=== PATIENT | male | born 1975 | race Caucasian/White ===

== ENCOUNTER 2018-03-07 18:28 | Inpatient (IN) | payer MEDICAID ==
[2018-03-07 18:42] VITALS: BMI 27.3
[2018-03-07 20:14] LABS: BASO # 0.1 K/uL (0.0-0.2); BASO % 0.5 % (0.0-2.0); EOS # 0.1 K/uL (0.0-0.7); EOS % 0.7 % (0.0-4.0); HEMOGLOBIN 13.8 g/dL (12.0-18.0); LYMPH # 3.6 K/uL (1.0-4.3); LYMPH % 33.2 % (20.0-40.0); MEAN CELL VOLUME 81.3 fL (80.0-94.0); MEAN CORPUSCULAR HEMOGLOBIN 26.5 pg (27.0-31.0); MEAN CORPUSCULAR HGB CONC 32.5 g/dL (33.0-37.0); MEAN PLATELET VOLUME 9.6 fL (7.2-11.7); MONO # 0.6 K/uL (0.0-0.8); MONO % 5.7 % (0.0-10.0); NEUT # 6.5 K/uL (1.8-7.0); NEUT % 59.9 % (50.0-75.0); NRBC % 0.1 % (0.0-2.0); RBC 5.23 Mil/uL (4.40-5.90); WHITE BLOOD COUNT 10.8 K/uL (4.8-10.8)
[2018-03-07 20:22] LABS: SQUAMOUS EPITHIAL < 1 /hpf (0-5); URINE BILIRUBIN NEGATIVE (NEGATIVE); URINE BLOOD NEGATIVE (NEGATIVE); URINE CLARITY Clear (Clear); URINE COLOR Yellow (YELLOW); URINE GLUCOSE (UA) NORMAL (Normal); URINE LEUKOCYTE ESTERASE NEG Leu/uL (Negative); URINE PROTEIN NEGATIVE (NEGATIVE); URINE UROBILINOGEN NORMAL mg/dL (0.2-1.0)
[2018-03-07 20:31] LABS: BARBITURATES, UR NEGATIVE (NEGATIVE); BENZODIAZEPINES, UR NEGATIVE (NEGATIVE); OPIATES, UR NEGATIVE (NEGATIVE); PHENCYCLIDINE, UR NEGATIVE (NEGATIVE)
[2018-03-07 20:33] LABS: ALB/GLOB RATIO 1.2 (1.0-2.1); ALBUMIN 4.5 g/dL (3.5-5.0); ALT/SGPT 48 U/L (21-72); AST/SGOT 26 U/L (17-59); BLOOD UREA NITROGEN 12 mg/dL (9-20); CALCIUM 9.8 mg/dl (8.6-10.4); GFR NON-AFRICAN AMERICAN > 60
[2018-03-07 20:57] VITALS: O2SAT 100
--- NOTE | 2018-03-07 21:19 | C.PDOC ---
History Of Present Illness 42yo male, history of depression, comes to ER requesting a psychiatric evaluation. Patient states he was incarcerated for the past 2-3 years and states his symptoms were not properly managed while incarcerated. He reports feeling "out of sorts" but denies any suicidal or homicidal ideation. He has no medical complaints. Time Seen by Provider: 03/07/18 19:18 Chief Complaint (Nursing): Psychiatric Evaluation History Per: Patient History/Exam Limitations: no limitations Onset/Duration Of Symptoms: Persistent Current Symptoms Are (Timing): Still Present Associated Symptoms: Depression. denies: Suicidal Thoughts, Suicidal Plan Past Medical History Reviewed: Historical Data, Nursing Documentation, Vital Signs Vital Signs: Last Vital Signs Temp 99.6 F 03/07/18 21:20 Pulse 110 H 03/07/18 21:20 Resp 20 03/07/18 21:20 BP 139/91 H 03/07/18 21:20 Pulse Ox 100 03/07/18 21:20 - Medical History PMH: Depression, HTN, Post Traumatic Stress Disorder Denies: Anxiety, Bipolar Disorder, Diabetes, Hepatitis, HIV, Personality Disorder, Schizophrenia, Seizures, Sexually Transmitted Disease Surgical History: No Surg Hx - [facility] INDIVID PSYCHOTHERAP NEC (04/16/14) OTHER GROUP THERAPY (04/16/14) Family History: States: No Known Family Hx - Social History Hx Tobacco Use: Yes Hx Alcohol Use: No (Sober x 3 years) Hx Substance Use: No (Stopped 2 months ago) - Immunization History Hx Tetanus Toxoid Vaccination: No Hx Influenza Vaccination: No Hx Pneumococcal Vaccination: No Review Of Systems Constitutional: Negative for: Fever, Chills Cardiovascular: Negative for: Chest Pain Respiratory: Negative for: Shortness of Breath Gastrointestinal: Negative for: Abdominal Pain Musculoskeletal: Negative for: Neck Pain, Back Pain Neurological: Negative for: Weakness, Numbness Psych: Positive for: Depression. Negative for: Suicidal ideation Physical Exam - Physical Exam Appears: Non-toxic Skin: Normal Color, Warm Head: Atraumatic, Normacephalic Eye(s): bilateral: Normal Inspection Neck: Normal ROM, Supple Chest: Symmetrical Cardiovascular: Rhythm Regular Respiratory: Normal Breath Sounds Gastrointestinal/Abdominal: Normal Exam, Soft Back: Normal Inspection Extremity: Normal ROM Neurological/Psych: Oriented x3, Normal Speech, Normal Cognition, Normal Motor, Normal Sensation ED Course And Treatment - Laboratory Results Result Diagrams: 03/07/18 20:04 03/07/18 20:04 O2 Sat by Pulse Oximetry: 100 (RA) Pulse Ox Interpretation: Normal Progress Note: Patient seen and evaluated by home economics extension worker Dalila who states patient to be admitted under Dr. Bowen due to Schizoaffective disorder and other substance abuse disorder Disposition - Disposition Disposition: HOSPITALIZED Disposition Time: 21:10 Condition: STABLE - Clinical Impression Clinical Impression: Schizoaffective disorder, Unknown substance dependence, episodic abuse - PA / INTERLOCKER MAINTAINER / Resident Statement MD/DO has reviewed & agrees with the documentation as recorded. - Scribe Statement The provider has reviewed the documentation as recorded by the Arnie Rendon Provider Attestation: All medical record entries made by the Arnie were at my direction and personally dictated by me. I have reviewed the chart and agree that the record accurately reflects my personal performance of the history, physical exam, medical decision making, and the department course for this patient. I have also personally directed, reviewed, and agree with the discharge instructions and disposition.
--- NOTE | 2018-03-07 22:57 | PCM.BM ---
<Reva Lipscombn - Last Filed: 03/07/18 22:55> Treatment Plan Problems - Problems identified on initial assessmt Mood Disturbances Date Initiated: 03/07/18 Time Initiated: 22:55 Assessment reference: NA Status: Active Suicidal Ideation Date Initiated: 03/07/18 Time Initiated: 22:55 Assessment reference: NA Status: Monitor Treatment assets and liabiliti Patient Assests: ADL independent, physically healthy Patient Liabilities: poor support system - Milieu Protocol Maintain good personal hygiene: daily Encourage regular showers, daily Remind patient to perform daily oral care, daily Assist patient to perform ADL's Maintain personal safety: every shift Educate patient to report safety concerns to staff, every shift Monitor environment for contraband/sharps Medication safety: Monitor for expected outcome, potential side effects: every shift, Assess barriers to learning: every shift, Assess readiness for medication education: every shift <Tiara Page - Last Filed: 03/08/18 11:55> Family Contact Family involvement: Family/SO is involved Family contact: Patient declines to allow family contact at present - Goals for Treatment Patient goals for treatment: "I 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 - Treatment Team Participation Discussed with Family/SO: No Was Patient/Family/SO present at Treatment Team Meeting: Yes <Kathya Bowen - Last Filed: 03/08/18 23:36> - Diagnosis (1) Bipolar disorder Status: Acute Interventions: 03/08/18 23:36 * Assess/adjust medications daily and /or as needed * See patient on an individual basis 7x/week to assess level of manic behaviors and stability * Discuss risks, benefits, side effects and alternatives of medications *
[2018-03-08 06:50] VITALS: RESP 18
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
[2018-03-09 06:37] VITALS: BP 122/84; PULSE 121; TEMP 98.5
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
[2018-03-09] MEDS ORDERED: Pneumococcal 23-Valent Vaccine SC ONE (10:00)
== END 2018-03-09 10:04 | disposition home or self-care (01) | DRG 885 ==
LOC: C.ER 18:28 → C.5E 20:56
PROVIDERS: ADMIT Psychiatry & Neurology Psychiatry; ATTEND Psychiatry & Neurology Psychiatry
PROC: GZHZZZZ Group Psychotherapy (ICD-10-PCS; principal; 2018-03-07)
PROC: GZ56ZZZ Individual Psychotherapy, Supportive (ICD-10-PCS; 2018-03-07)
DX: F31.32 Bipolar disorder, current episode depressed, moderate (principal); F17.210 Nicotine dependence, cigarettes, uncomplicated; I10 Essential (primary) hypertension; Z59.0 Homelessness; F43.10 Post-traumatic stress disorder, unspecified; F12.21 Cannabis dependence, in remission; E78.00 Pure hypercholesterolemia, unspecified; E11.9 Type 2 diabetes mellitus without complications

== ENCOUNTER 2018-03-09 21:29 | Emergency (ER) | payer MEDICAID, OTHER ==
[2018-03-09 21:29] VITALS: BMI 27.3
[2018-03-09 22:11] VITALS: TEMP 98.4
--- NOTE | 2018-03-09 22:29 | C.PDOC ---
History Of Present Illness Patient is a 42 y/o M presenting with R sided neck pain. He reports that this morning he woke up with R sided neck pain. He reports that the pain is worse with movement and worse with palpation. Denies trauma. Denies midline pain. Denies fever, cough, chest pain, shortness of breath, weakness,numbness or tingling. He reports that he is concerned that his blood pressure is high as he was recently diagnosed with hypertension and has been unable to afford his norvasc. Time Seen by Provider: 03/09/18 22:13 Chief Complaint (Nursing): High Blood Pressure Past Medical History Vital Signs: Last Vital Signs Temp 98.4 F 03/09/18 22:07 Pulse 96 H 03/09/18 23:24 Resp 16 03/09/18 23:24 BP 129/90 03/09/18 23:24 Pulse Ox 97 03/09/18 23:50 - Medical History PMH: Depression, HTN, Post Traumatic Stress Disorder Denies: Anxiety, Bipolar Disorder, Diabetes, Hepatitis, HIV, Personality Disorder, Schizophrenia, Seizures, Sexually Transmitted Disease - [facility] Procedures INDIVID PSYCHOTHERAP NEC (04/16/14) OTHER GROUP THERAPY (04/16/14) Family History: States: No Known Family Hx - Social History Hx Tobacco Use: Yes Hx Alcohol Use: No (Sober x 3 years) Hx Substance Use: No - Immunization History Hx Tetanus Toxoid Vaccination: No Hx Influenza Vaccination: No Hx Pneumococcal Vaccination: No Review Of Systems Constitutional: Negative for: Fever, Chills Cardiovascular: Negative for: Chest Pain, Palpitations, Orthopnea, Edema, Light Headedness Respiratory: Negative for: Cough, Shortness of Breath, SOB with Excertion, Wheezing Gastrointestinal: Negative for: Nausea, Vomiting, Abdominal Pain, Diarrhea, Constipation Genitourinary: Negative for: Dysuria, Frequency Musculoskeletal: Positive for: Neck Pain. Negative for: Shoulder Pain, Arm Pain , Back Pain, Hand Pain Neurological: Negative for: Weakness, Numbness, Incoordination, Change in Speech , Confusion, Seizures, Altered Mental Status, Headache, Dizziness Physical Exam - Physical Exam Appears: Well, Non-toxic, No Acute Distress Skin: Normal Color, Warm, Dry Head: Atraumatic, Normacephalic Eye(s): bilateral: Normal Inspection, PERRL, EOMI Neck: Paracervical Tenderness (R sided muscle spasm, tender to palpation), Supple Chest: Symmetrical Cardiovascular: Rhythm Regular Respiratory: Normal Breath Sounds, No Rales, No Rhonchi, No Wheezing Gastrointestinal/Abdominal: Soft, No Tenderness Back: Normal Inspection, No CVA Tenderness Extremity: Normal ROM Neurological/Psych: Oriented x3, Normal Speech, Normal Cranial Nerves, Normal Motor, Normal Sensation Gait: Steady ED Course And Treatment - Laboratory Results Result Diagrams: 03/09/18 22:42 03/09/18 22:42 O2 Sat by Pulse Oximetry: 97 Medical Decision Making Medical Decision Making: Presentation seems consistent with muscle spasm. Non-compliant with BP medication. He reports that he has the prescription at home and was urged to fill it --toradol --bp medication --ekg --labs --xray 10:40PM EKG shows NSR at 95bpm with normal intervals and no st changes. Cxray unchanged. Labs grossly normal. Trop negative. Patient feels better after muscle relaxant and anti-inflammatory. Instructed to follow-up with clinic and take medication Disposition - Disposition Referrals: [facility] [Outside] Disposition: HOME/ ROUTINE Disposition Time: 23:44 Condition: GOOD Additional Instructions: Take your blood pressure medication as prescribed. Return to ED if condition worsens. Follow-up with PMD or Clinic within 2 days. Motrin as needed for pain. Prescriptions: Ibuprofen [Motrin] 600 mg PO Q6 #20 tab Instructions: Muscle Strain, High Blood Pressure in Adults Forms: [facility] (Dutch) - Clinical Impression Clinical Impression: Neck strain, Muscle spasm, Elevated blood pressure reading
[2018-03-09 22:46] LABS: BASO # 0.1 K/uL (0.0-0.2); BASO % 0.5 % (0.0-2.0); EOS # 0.2 K/uL (0.0-0.7); EOS % 1.3 % (0.0-4.0); HEMOGLOBIN 13.1 g/dL (12.0-18.0); LYMPH # 3.9 K/uL (1.0-4.3); MEAN CELL VOLUME 82.4 fL (80.0-94.0); MEAN CORPUSCULAR HEMOGLOBIN 26.5 pg (27.0-31.0); MEAN CORPUSCULAR HGB CONC 32.1 g/dL (33.0-37.0); MONO # 0.6 K/uL (0.0-0.8); MONO % 4.7 % (0.0-10.0); NEUT # 7.6 K/uL (1.8-7.0); NEUT % 61.5 % (50.0-75.0); NRBC % 0.1 % (0.0-2.0); RBC 4.93 Mil/uL (4.40-5.90); RED CELL DISTRIBUTION WIDTH 14.3 % (11.5-14.5); WHITE BLOOD COUNT 12.3 K/uL (4.8-10.8)
[2018-03-09 23:01] LABS: ALB/GLOB RATIO 1.1 (1.0-2.1); ALBUMIN 4.2 g/dL (3.5-5.0); ALT/SGPT 45 U/L (21-72); AST/SGOT 43 U/L (17-59); BLOOD UREA NITROGEN 16 mg/dL (9-20); CALCIUM 9.2 mg/dl (8.6-10.4); GFR NON-AFRICAN AMERICAN > 60
[2018-03-09 23:25] VITALS: BP 129/90; PULSE 96; RESP 16
[2018-03-09 23:26] VITALS: O2SAT 97
--- NOTE | 2018-03-10 08:07 | RAD ---
Date of service: 03/09/2018 HISTORY: neck pain COMPARISON: 04/30/2014. FINDINGS: LUNGS: The lungs are well inflated and clear. PLEURA: No significant pleural effusion identified, no pneumothorax apparent. CARDIOVASCULAR: Normal. OSSEOUS STRUCTURES: No significant abnormalities. VISUALIZED UPPER ABDOMEN: Normal. OTHER FINDINGS: None. IMPRESSION: No active pulmonary disease.
--- NOTE | 2018-03-13 11:32 | CARD ---
APPROVED REPORT Date of service: 03/09/2018 EKG Measurement Heart [id number] <Conclusion> Normal sinus rhythm Normal ECG
== END 2018-03-10 00:14 | disposition home or self-care (01) ==
LOC: C.ER 21:29
DX: S16.1XXA Strain of muscle, fascia and tendon at neck level, initial encounter (principal); X58.XXXA Exposure to other specified factors, initial encounter; Y92.9 Unspecified place or not applicable; I10 Essential (primary) hypertension; F17.210 Nicotine dependence, cigarettes, uncomplicated
CPT/HCPCS: 71045; 80053; 82948; 84484; 85025; 93005; 96372; 99285; J1885

== ENCOUNTER 2018-03-12 13:26 | Inpatient (IN) | payer MEDICAID, OTHER ==
[2018-03-12 13:26] VITALS: BMI 27.3
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
[2018-03-12 14:26] LABS: BASO # 0.1 K/uL (0.0-0.2); BASO % 0.5 % (0.0-2.0); EOS # 0.2 K/uL (0.0-0.7); EOS % 1.2 % (0.0-4.0); HEMOGLOBIN 13.6 g/dL (12.0-18.0); LYMPH % 20.5 % (20.0-40.0); MEAN CELL VOLUME 82.3 fL (80.0-94.0); MEAN CORPUSCULAR HEMOGLOBIN 26.8 pg (27.0-31.0); MEAN CORPUSCULAR HGB CONC 32.6 g/dL (33.0-37.0); MEAN PLATELET VOLUME 9.5 fL (7.2-11.7); MONO # 0.7 K/uL (0.0-0.8); MONO % 4.9 % (0.0-10.0); NEUT # 10.7 K/uL (1.8-7.0); NEUT % 72.9 % (50.0-75.0); RBC 5.07 Mil/uL (4.40-5.90); RED CELL DISTRIBUTION WIDTH 14.2 % (11.5-14.5); WHITE BLOOD COUNT 14.7 K/uL (4.8-10.8)
[2018-03-12 14:30] LABS: SQUAMOUS EPITHIAL < 1 /hpf (0-5); URINE BACTERIA RARE (<OCC); URINE BILIRUBIN NEGATIVE (NEGATIVE); URINE BLOOD 2+ (NEGATIVE); URINE CLARITY Hazy (Clear); URINE COLOR Yellow (YELLOW); URINE GLUCOSE (UA) NORMAL (Normal); URINE LEUKOCYTE ESTERASE NEG Leu/uL (Negative); URINE PROTEIN 2+ mg/dL (NEGATIVE); URINE UROBILINOGEN NORMAL mg/dL (0.2-1.0)
[2018-03-12 14:40] LABS: ALB/GLOB RATIO 1.2 (1.0-2.1); ALBUMIN 4.3 g/dL (3.5-5.0); ALT/SGPT 66 U/L (21-72); AST/SGOT 45 U/L (17-59); BLOOD UREA NITROGEN 10 mg/dL (9-20); CALCIUM 9.5 mg/dl (8.6-10.4); GFR NON-AFRICAN AMERICAN > 60
[2018-03-12 14:42] LABS: BARBITURATES, UR NEGATIVE (NEGATIVE); BENZODIAZEPINES, UR NEGATIVE (NEGATIVE); OPIATES, UR NEGATIVE (NEGATIVE); PHENCYCLIDINE, UR NEGATIVE (NEGATIVE)
[2018-03-12] MEDS ORDERED: Sodium Chloride 0.9% 1,000 ML IV ONE (15:55)
[2018-03-12] MEDS ORDERED: Magnesium Sulfate 1 gm in D5W 1 GM/100 ML BAG IVPB ONE ×2 (17:05→17:13)
--- NOTE | 2018-03-12 17:55 | RAD ---
HISTORY: Cough COMPARISON: 03/09/2018. TECHNIQUE: Chest PA and lateral FINDINGS: LINES AND TUBES: None. LUNG AND PLEURA: The lungs are well inflated and clear. No pleural effusion or pneumothorax. HEART AND MEDIASTINUM: The heart is not enlarged. The hilar and mediastinal contours are within normal limits. SKELETAL STRUCTURES: The bony structures are within normal limits for the patient's age. VISUALIZED UPPER ABDOMEN: Normal. OTHER FINDINGS: None. IMPRESSION: No active pulmonary disease.
--- NOTE | 2018-03-12 20:59 | PCM.BM ---
<Wilma Monsalve - Last Filed: 03/12/18 20:57> Treatment Plan Problems - Problems identified on initial assessmt depression Date Initiated: 03/12/18 Time Initiated: 20:58 Assessment reference: NA Status: Active Treatment assets and liabiliti Patient Assests: cooperative, insightful, motivated, ADL independent, physically healthy, negotiates basic needs, cognitively intact, strong breana Patient Liabilities: live alone, financial problems, substance abuse <Kathya Bowen - Last Filed: 03/13/18 11:16> - Diagnosis (1) Bipolar disorder Status: Acute Interventions: 03/13/18 11:16 * Assess/adjust medications daily and /or as needed * See patient on an individual basis 7x/week to assess level of manic behaviors and stability * Discuss risks, benefits, side effects and alternatives of medications * <Pema Husain - Last Filed: 03/13/18 14:40> Family Contact Family involvement: Patient does not wish Family/SO involvement Family contact: Patient declines to allow family contact at present - Goals for Treatment Patient goals for treatment: "I want to go to [facility]." Discharge/Continuing Care - Education Needs Education Needs: Patient Medication, Patient Diagnosis/Disease Process, Patient Coping Skills, Patient Placement options, Patient Community resources - Discharge Discharge Criteria: Free of Suicidal thoughts, Normal sleep pattern, Ability to care for self, Reduction of target symptoms Discharge to:: Other - Treatment Team Participation Discussed with Family/SO: No Was Patient/Family/SO present at Treatment Team Meeting: Yes
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
--- NOTE | 2018-03-13 19:24 | CARD ---
APPROVED REPORT Date of service: 03/12/2018 EKG Measurement Heart [id number] <Conclusion> Sinus tachycardia with occasional premature ventricular complexes Low voltage in limb leads Borderline EKG
--- NOTE | 2018-03-14 14:03 | PCM.PYCHPN ---
Addendum entered and electronically signed by Kathya Bowen MD 03/15/18 23:14: Patient seen and evaluated, chart reviewed and discussed with the nurse. Pt reports depressed mood, but reports some improvement in the feelings of hopelessness and helplessness. He still reports irritability and agitation. He remained isolated and withdrawn, and confined to his room. He reports at times auditory hallucinations. Patient is compliant with medications and denies any side effects. Symptoms are improving but pt needs more time to stabilize. Support and psychoeducation given. Original Note: Psychiatric Progress Note - Psychiatric Progress Note Patient seen today, length of contact: 20 min Patient Chief Complaint: "I wanted to " Medication Change: No Medical Record Reviewed: Yes Mental Status Examination - Cognitive Function Orientation: Person, Place, Situation, Time Memory: Intact Attention: Poor Concentration: WNL Association: Loose Fund of Knowledge: WNL - Mood Mood: Depressed, Anxious - Affect Affect: Constricted, Depressed - Speech Speech: Soft, Pressured - Formal Thought Process Formal Thought Process: No Impairment - Suicidal Ideation Suicidal Ideation: No - Homicidal Ideation Homicidal Ideation: Yes Goal/Treatment Plan - Goal/Treatment Plan Need for Continued Stay: Severe depression anxiety, Severe functional impairment Progress Toward Problem(s) and Goals/Treatment Plan: Bipolar disorder, depressed moderate Cannabis use disorder moderate in remission Pt under observation As need medications Gabapentin 300 mg PO TID Trazodone 50 mg PO QHS All risks, benefits and alternatives of the meds discussed, and the pt agreed and understood. Attend groups and activities Individual therapy daily Psychoeducation and support daily Encourage compliance with meds and after care Refer to outpatient program Teach healthy lifestyle methods, i.e. diet, exercise, meditation Smoking cessation and patch if needed - Smoking Cessation Smoking Cessation Initiated: No
[2018-03-15 06:49] VITALS: RESP 20
--- NOTE | 2018-03-15 11:25 | PCM.PYCHPN ---
Psychiatric Progress Note - Psychiatric Progress Note Patient seen today, length of contact: 20 min Patient Chief Complaint: I am feeling better.' Problems Identified/Issues Discussed: Patient seen and evaluated, chart reviewed and discussed with the nurse. Pt reports depressed mood, but reports some improvement in the feelings of hopelessness and helplessness. He still reports irritability and agitation. He remained isolated and withdrawn, and confined to his room. He reports at times auditory hallucinations. Patient is compliant with medications and denies any side effects. Symptoms are improving but pt needs more time to stabilize. Support and psychoeducation given. Medication Change: No Medical Record Reviewed: Yes Mental Status Examination - Cognitive Function Orientation: Person, Place, Situation, Time Memory: Intact Attention: Poor Concentration: WNL Association: Loose Fund of Knowledge: WNL - Mood Mood: Depressed, Anxious - Affect Affect: Constricted, Depressed - Speech Speech: Soft, Pressured - Formal Thought Process Formal Thought Process: No Impairment - Suicidal Ideation Suicidal Ideation: No - Homicidal Ideation Homicidal Ideation: Yes Goal/Treatment Plan - Goal/Treatment Plan Need for Continued Stay: Severe depression anxiety, Severe functional impairment Progress Toward Problem(s) and Goals/Treatment Plan: Bipolar disorder, depressed moderate Cannabis use disorder moderate in remission Pt under observation As need medications Gabapentin 300 mg PO TID Trazodone 50 mg PO QHS Seroquel 50 mg Seroquel 200 mg OLanzapine 5 mg PO BID All risks, benefits and alternatives of the meds discussed, and the pt agreed and understood. Attend groups and activities Individual therapy daily Psychoeducation and support daily Encourage compliance with meds and after care Refer to outpatient program Teach healthy lifestyle methods, i.e. diet, exercise, meditation Smoking cessation and patch if needed
--- NOTE | 2018-03-17 11:11 | PCM.PYCHPN ---
Psychiatric Progress Note - Psychiatric Progress Note Patient seen today, length of contact: 20 min Patient Chief Complaint: I am feeling better.' Problems Identified/Issues Discussed: Patient seen and evaluated, chart reviewed and discussed with the nurse. Today he is reporting auditory hallucinations command type to kill himself, however he is meri for safety. Pt reports depressed mood, but reports some improvement in the feelings of hopelessness and helplessness. He still reports irritability and agitation. He remained isolated and withdrawn, and confined to his room. Patient is compliant with medications and denies any side effects. Symptoms are improving but pt needs more time to stabilize. Support and psychoeducation given. Medication Change: No Medical Record Reviewed: Yes Mental Status Examination - Cognitive Function Orientation: Person, Place, Situation, Time Memory: Intact Attention: Poor Concentration: WNL Association: Loose Fund of Knowledge: WNL - Mood Mood: Depressed, Anxious - Affect Affect: Constricted, Depressed - Speech Speech: Soft, Pressured - Formal Thought Process Formal Thought Process: No Impairment - Suicidal Ideation Suicidal Ideation: No - Homicidal Ideation Homicidal Ideation: Yes Goal/Treatment Plan - Goal/Treatment Plan Need for Continued Stay: Severe depression anxiety, Severe functional impairment Progress Toward Problem(s) and Goals/Treatment Plan: Bipolar disorder, depressed moderate Cannabis use disorder moderate in remission Pt under observation As need medications Gabapentin 300 mg PO TID Trazodone 50 mg PO QHS Seroquel 50 mg Seroquel 200 mg OLanzapine 5 mg PO BID All risks, benefits and alternatives of the meds discussed, and the pt agreed and understood. Attend groups and activities Individual therapy daily Psychoeducation and support daily Encourage compliance with meds and after care Refer to outpatient program Teach healthy lifestyle methods, i.e. diet, exercise, meditation Smoking cessation and patch if needed
[2018-03-19] MEDS ORDERED: Influenza Vaccine 60 MCG/0.5 ML SYR (3 yr & up) IM ONE (10:00)
--- NOTE | 2018-03-19 21:31 | PCM.PYCHPN ---
Psychiatric Progress Note - Psychiatric Progress Note Patient seen today, length of contact: 15 minutes Patient Chief Complaint: Today I am feeling better. Problems Identified/Issues Discussed: Patient seen, chart reviewed, case discussed with the staff. Issues related to illness and treatment were discussed with the patient and staff. Reported compliant with treatment with no adverse affects. Tolerating treatment very well. Patient reported feeling little better with the treatment. Calm and cooperative. Awake, alert and oriented 3. No psychomotor activity, good eye contact, memory intact. Aftercare discussed with the patient. Denied any delusions, auditory or visual hallucinations, suicidal ideations or homicidal ideations at the time of evaluation. Diagnostic Results: Reviewed DSM 5 Symptoms Update: Improving with treatment Medication Change: No Medical Record Reviewed: Yes Mental Status Examination - Cognitive Function Orientation: Person, Place, Situation, Time Memory: Intact Attention: WNL Concentration: WNL Association: WNL Fund of Knowledge: WN Decription of patient's judgement and insights: Good - Mood Mood: Depressed - Affect Affect: Constricted, Depressed - Speech Speech: Appropriate - Formal Thought Process Formal Thought Process: No Impairment - Suicidal Ideation Suicidal Ideation: No - Homicidal Ideation Homicidal Ideation: No Goal/Treatment Plan - Goal/Treatment Plan Need for Continued Stay: Remain at risks for inpatient hospitalization, Discharge may exacerbated symptoms, Severe functional impairment Progress Toward Problem(s) and Goals/Treatment Plan: Patient education. Supportive therapy. Continue treatment as before. Patient will go to [facility] for follow-up care after discharge from the hospital. Estimated Date of D/C: 03/20/18 - Smoking Cessation Smoking Cessation Initiated: No
[2018-03-20 06:13] VITALS: O2SAT 98
[2018-03-20] MEDS ORDERED: Pneumococcal 23-Valent Vaccine IM ONE (10:00)
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
[2018-03-21 06:52] VITALS: BP 133/85; PULSE 99; TEMP 97.4
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
== END 2018-03-21 11:21 | disposition home or self-care (01) | DRG 753 ==
LOC: C.ER 13:26 → C.5E 19:01
PROVIDERS: ADMIT Psychiatry & Neurology Psychiatry; ATTEND Psychiatry & Neurology Psychiatry
PROC: GZHZZZZ Group Psychotherapy (ICD-10-PCS; principal; 2018-03-12)
PROC: GZ58ZZZ Individual Psychotherapy, Cognitive-Behavioral (ICD-10-PCS; 2018-03-12)
PROC: GZ56ZZZ Individual Psychotherapy, Supportive (ICD-10-PCS; 2018-03-12)
DX: F31.32 Bipolar disorder, current episode depressed, moderate (principal); E11.9 Type 2 diabetes mellitus without complications; R45.851 Suicidal ideations; F12.21 Cannabis dependence, in remission; F25.9 Schizoaffective disorder, unspecified; F17.210 Nicotine dependence, cigarettes, uncomplicated; E78.00 Pure hypercholesterolemia, unspecified; F42.9 Obsessive-compulsive disorder, unspecified; F43.10 Post-traumatic stress disorder, unspecified; I10 Essential (primary) hypertension; Z59.0 Homelessness; Z91.410 Personal history of adult physical and sexual abuse

== ENCOUNTER 2018-03-22 15:26 | Inpatient (IN) | payer MEDICAID ==
[2018-03-22 15:27] VITALS: BMI 27.3
[2018-03-22] MEDS ORDERED: Sodium Chloride 0.9% 1,000 ML IV ONE (16:17)
[2018-03-22] MEDS ORDERED: Charcoal 50 gm/240 ml Susp PO STA (16:17)
--- NOTE | 2018-03-22 16:19 | C.PDOC ---
History Of Present Illness 42 y/o male brought in by EMS s/p intentional overdose prior to arrival. Patient states he took 15-20 pills of gabapentin, 300mg each, with intention of suicide. Records reviewed and patient was discharged home from crisis on 03/20. Seen in the ED at [facility] for depression 03/21 as well. Patient denies any drug use. Only complaint at this time is mild tremors. Time Seen by Provider: 03/22/18 16:11 Chief Complaint (Nursing): Psychiatric Evaluation History Per: Patient History/Exam Limitations: no limitations Onset/Duration Of Symptoms: Hrs Current Symptoms Are (Timing): Still Present Suicide/Self Injury Attempted (Context): Ingestion (15-20 tabs gabapentin) Associated Symptoms: Depression, Suicidal Thoughts, Suicidal Plan Past Medical History Reviewed: Historical Data, Nursing Documentation, Vital Signs Vital Signs: Last Vital Signs Temp 98.6 F 03/22/18 15:55 Pulse 124 H 03/22/18 15:55 Resp 22 03/22/18 15:55 BP 158/91 H 03/22/18 15:55 Pulse Ox 97 03/22/18 15:55 - Medical History PMH: Bipolar Disorder, Depression, HTN, Post Traumatic Stress Disorder (parents 2004) Denies: Anxiety, Diabetes, Hepatitis, HIV, Personality Disorder, Schizophrenia, Seizures, Sexually Transmitted Disease - [facility] Procedures GROUP PSYCHOTHERAPY (03/07/18) INDIVID PSYCHOTHERAP NEC (04/16/14) INDIVIDUAL PSYCHOTHERAPY, SUPPORTIVE (03/07/18) OTHER GROUP THERAPY (04/16/14) Family History: States: Hypertension - Social History Hx Tobacco Use: Yes Hx Alcohol Use: Yes Hx Substance Use: No - Immunization History Hx Tetanus Toxoid Vaccination: No Hx Influenza Vaccination: No Hx Pneumococcal Vaccination: No Review Of Systems Constitutional: Negative for: Fever, Chills Cardiovascular: Negative for: Chest Pain Respiratory: Negative for: Shortness of Breath Gastrointestinal: Negative for: Nausea, Vomiting Musculoskeletal: Positive for: Other (Tremors) Neurological: Negative for: Weakness, Numbness, Change in Speech Psych: Positive for: Depression, Suicidal ideation (S/P SUICIDE ATTEMPT, OVERDOSE). Negative for: Psychosis, Other (hallucinations, homicidal ideation) Physical Exam - Physical Exam Appears: Non-toxic, Other (Appropriate, interactive, calm, and cooperative) Skin: Normal Color, Warm, Dry Head: Atraumatic, Normacephalic Eye(s): bilateral: Normal Inspection, PERRL, EOMI Neck: Normal ROM, Supple Chest: Symmetrical Cardiovascular: Rhythm Regular (but tachycardic) Respiratory: Normal Breath Sounds, No Accessory Muscle Use, Other (NARD) Gastrointestinal/Abdominal: Soft, No Tenderness, No Distention Extremity: Bilateral: Atraumatic, Normal Color And Temperature, Normal ROM Neurological/Psych: Normal Speech, Normal Cranial Nerves, Other (Flat affect, Active suicidal ideation, No gross intoxication or psychosis) ED Course And Treatment - Laboratory Results Result Diagrams: 03/22/18 16:53 03/22/18 16:53 ECG: Interpreted By Me ECG Rhythm: Sinus Tachycardia ECG Interpretation: Abnormal Interpretation Of ECG: INTERVALS WNL Rate From EC O2 Sat by Pulse Oximetry: 97 Pulse Ox Interpretation: Normal - Radiology CXR: Interpreted by Me CXR Interpretation: Yes: No Acute Disease Progress - Re-Evaluation Re-evaluation Note: 03/22/18 17:44 d/w dr Cunningham [employer] TECHNICIAN WILL ADMIT - Data Reviewed Data Reviewed: Lab, Diagnostic imaging, EKG, Old records - Critical Care Citical Care: Excluding Proc Time Critical Care Time: 90 minutes Medical Decision Making Medical Decision Making: Impression: S/P overdose, suicide attempt Plan: --EKG --CMP --UDS --Alcohol serum --Acetaminophen --Salicylate --CBC --Urinalysis --Chest x-ray --IV fluids --Actidose 50 gm PO --Crisis evaluation Disposition Counseled Patient/Family Regarding: Studies Performed, Diagnosis - Disposition Disposition: HOSPITALIZED Disposition Time: 17:51 Condition: STABLE Forms: [facility] (Gambian) - POA Present On Arrival: None - Clinical Impression Clinical Impression: Intentional drug overdose, Suicide attempt - Scribe Statement The provider has reviewed the documentation as recorded by the Scribe (Sara Manning) Provider Attestation: All medical record entries made by the Scribe were at my direction and personally dictated by me. I have reviewed the chart and agree that the record accurately reflects my personal performance of the history, physical exam, medical decision making, and the department course for this patient. I have also personally directed, reviewed, and agree with the discharge instructions and disposition. Decision To Admit - Pt Status Changed To: Hospital Disposition Of: Inpatient - Admit Certification Admit to Inpatient:: After my assessment, the patient will require hospitalization for at least two midnights. This is because of the severity of symptoms shown, intensity of services needed, and/or the medical risk in this patient being treated as an outpatient. - InPatient: Physician Admission Certification: I certify that this patient requires 2 or more midnights of care for the following reason:: SEE NOTE - . Bed Request Type: Telemetry Admitting Physician: Obed Cunningham Patient Diagnosis: Intentional drug overdose, Suicide attempt
--- NOTE | 2018-03-22 16:54 | RAD ---
Date of service: 03/22/2018 PROCEDURE: CHEST RADIOGRAPH, 1 VIEW HISTORY: Overdosed COMPARISON: 03/12/2018 FINDINGS: LUNGS: Clear. PLEURA: No pneumothorax or pleural fluid seen. CARDIOVASCULAR: Normal. OSSEOUS STRUCTURES: No significant abnormalities. VISUALIZED UPPER ABDOMEN: Normal. OTHER FINDINGS: None. IMPRESSION: No active disease. No acute/significant interval changes. Concordant results with the preliminary interpretation rendered by the emergency department physician procedure.
[2018-03-22 17:01] LABS: BASO # 0.1 K/uL (0.0-0.2); BASO % 0.8 % (0.0-2.0); EOS # 0.1 K/uL (0.0-0.7); EOS % 1.2 % (0.0-4.0); HEMOGLOBIN 12.9 g/dL (12.0-18.0); LYMPH # 3.1 K/uL (1.0-4.3); LYMPH % 34.1 % (20.0-40.0); MEAN CELL VOLUME 81.6 fL (80.0-94.0); MEAN CORPUSCULAR HEMOGLOBIN 26.6 pg (27.0-31.0); MEAN CORPUSCULAR HGB CONC 32.5 g/dL (33.0-37.0); MEAN PLATELET VOLUME 9.2 fL (7.2-11.7); MONO # 0.6 K/uL (0.0-0.8); MONO % 6.6 % (0.0-10.0); NEUT # 5.2 K/uL (1.8-7.0); NEUT % 57.3 % (50.0-75.0); RBC 4.86 Mil/uL (4.40-5.90); RED CELL DISTRIBUTION WIDTH 13.9 % (11.5-14.5); WHITE BLOOD COUNT 9.1 K/uL (4.8-10.8)
[2018-03-22 17:01] LABS: VENOUS BLOOD GAS BASE EXCESS 3.3 mmol/L (0.0-2.0); VENOUS BLOOD GAS PCO2 48 mmHg (40-60); VENOUS BLOOD GAS PO2 45 mm/Hg (30-55); VENOUS BLOOD PH 7.39 (7.32-7.43)
[2018-03-22] MEDS ORDERED: Sodium Chloride 0.9% 1,000 ML ONE (17:02)
[2018-03-22] MEDS ORDERED: Charcoal 50 gm/240 ml Susp ONE (17:02)
[2018-03-22 17:27] LABS: ACETAMINOPHEN < 10.0 ug/mL (10.0-30.0); SALICYLATE < 1.0 mg/dL 1; URINE BILIRUBIN NEGATIVE (NEGATIVE); URINE BLOOD NEGATIVE (NEGATIVE); URINE CLARITY Clear (Clear); URINE COLOR Straw (YELLOW); URINE GLUCOSE (UA) 2+ mg/dL (Normal); URINE LEUKOCYTE ESTERASE NEG Leu/uL (Negative); URINE PROTEIN NEGATIVE (NEGATIVE); URINE UROBILINOGEN NORMAL mg/dL (0.2-1.0)
[2018-03-22 17:33] LABS: ALB/GLOB RATIO 1.3 (1.0-2.1); ALBUMIN 4.5 g/dL (3.5-5.0); ALT/SGPT 78 U/L (21-72); AST/SGOT 49 U/L (17-59); BLOOD UREA NITROGEN 13 mg/dL (9-20); CALCIUM 9.2 mg/dl (8.6-10.4); GFR NON-AFRICAN AMERICAN > 60
[2018-03-22 17:39] LABS: BARBITURATES, UR NEGATIVE (NEGATIVE); BENZODIAZEPINES, UR NEGATIVE (NEGATIVE); OPIATES, UR NEGATIVE (NEGATIVE); PHENCYCLIDINE, UR NEGATIVE (NEGATIVE)
[2018-03-22] MEDS ORDERED: Dextrose 5%/0.45% NS 1,000 ML IV ONE (19:03)
[2018-03-22] MEDS: Dextrose 5%/0.45% NS 1,000 ML IV SCH (19:51)
[2018-03-22 21:17] LABS: ALB/GLOB RATIO 1.2 (1.0-2.1); ALBUMIN 3.6 g/dL (3.5-5.0); BILIRUBIN,DIRECT 0.2 mg/dL (0.0-0.4)
--- NOTE | 2018-03-22 22:20 | CP.PCM.HP ---
Present on Admission - Present on Admission Any Indicators Present on Admission: No Past Patient History - Past Medical History & Family History Past Medical History?: Yes - Past Social History Smoking Status: Heavy Smoker > 10 Cigarettes Daily - CARDIAC Hx Hypertension: Yes - PULMONARY Hx Tuberculosis: No - NEUROLOGICAL Hx Seizures: No - ENDOCRINE/METABOLIC Hx Diabetes Mellitus Type 2: Yes - HEMATOLOGICAL/ONCOLOGICAL Hx Human Immunodeficiency Virus (HIV): No - MUSCULOSKELETAL/RHEUMATOLOGICAL Hx Falls: No Hx Herniated Disk: Yes - GENITOURINARY/GYNECOLOGICAL Hx Sexually Transmitted Disorders: No - PSYCHIATRIC Hx Anxiety: No Hx Bipolar Disorder: Yes Hx Depression: Yes Hx Post Traumatic Stress Disorder: Yes (parents 2004) Hx Schizophrenia: No Hx Substance Use: No - SURGICAL HISTORY Hx Surgeries: Yes Other/Comment: 2000- L ARM REPAIR SUICIDE ATTEMPT - ANESTHESIA Hx Anesthesia: Yes Hx Anesthesia Reactions: No Meds Home Medications: Home Medication List Medication Instructions Recorded Confirmed Type RX: QUEtiapine [SEROquel] 50 mg PO ONCE #30 tab 03/28/18 Rx RX: traZODone [Desyrel] 50 mg PO HS PRN #30 tab 03/28/18 Rx Allergies/Adverse Reactions: Allergies Allergy/AdvReac Type Severity Reaction Status Date / Time haloperidol [From Haldol] AdvReac SWELLING Verified 03/22/18 16:03 Results - Vital Signs Recent Vital Signs: Last Vital Signs Temp 98.1 F 03/22/18 21:40 Pulse 89 03/22/18 21:40 Resp 16 03/22/18 21:40 BP 105/82 03/22/18 21:40 Pulse Ox 98 03/22/18 21:40 - Labs Result Diagrams: 03/24/18 17:47 03/24/18 17:47 Labs: Laboratory Results - last 24 hr 03/22/18 03/22/18 03/22/18 15:37 16:50 16:53 WBC 9.1 RBC 4.86 Hgb 12.9 Hct 39.7 MCV 81.6 MCH 26.6 L MCHC 32.5 L RDW 13.9 Plt Count 215 MPV 9.2 Neut % (Auto) 57.3 Lymph % (Auto) 34.1 [place] % (Auto) 6.6 Eos % (Auto) 1.2 Baso % (Auto) 0.8 Neut # (Auto) 5.2 Lymph # (Auto) 3.1 [place] # (Auto) 0.6 Eos # (Auto) 0.1 Baso # (Auto) 0.1 pO2 45 VBG pH 7.39 VBG pCO2 48 VBG HCO3 27.0 VBG Total CO2 30.6 H VBG O2 Sat (Calc) 85.5 H VBG Base Excess 3.3 H VBG Potassium 3.4 L Sodium 139.0 Chloride 102.0 Glucose 205 H Lactate 2.0 FiO2 21.0 Potassium Carbon Dioxide Anion Gap BUN Creatinine Est GFR ( Amer) Est GFR (Non-Af Amer) POC Glucose (mg/dL) 259 H Random Glucose Calcium Total Bilirubin Direct Bilirubin AST ALT Alkaline Phosphatase Total Protein Albumin Globulin Albumin/Globulin Ratio Venous Blood Potassium 3.4 L Urine Color Urine Clarity Urine pH Ur Specific [place] Urine Protein Urine Glucose (UA) Urine Ketones Urine Blood Urine Nitrate Urine Bilirubin Urine Urobilinogen Ur Leukocyte Esterase Urine RBC (Auto) Salicylates Urine Opiates Screen Urine Methadone Screen Acetaminophen Ur Barbiturates Screen Ur Phencyclidine Scrn Ur Amphetamines Screen U Benzodiazepines Scrn U Oth Cocaine Metabols U Cannabinoids Screen Alcohol, Quantitative 03/22/18 03/22/18 03/22/18 16:53 16:53 16:53 WBC RBC Hgb Hct MCV MCH MCHC RDW Plt Count MPV Neut % (Auto) Lymph % (Auto) [place] % (Auto) Eos % (Auto) Baso % (Auto) Neut # (Auto) Lymph # (Auto) [place] # (Auto) Eos # (Auto) Baso # (Auto) pO2 VBG pH VBG pCO2 VBG HCO3 VBG Total CO2 VBG O2 Sat (Calc) VBG Base Excess VBG Potassium Sodium 139 Chloride 99 Glucose Lactate FiO2 Potassium 3.8 Carbon Dioxide 29 Anion Gap 16 BUN 13 Creatinine 0.7 L Est GFR ( Amer) > 60 Est GFR (Non-Af Amer) > 60 POC Glucose (mg/dL) Random Glucose 209 H Calcium 9.2 Total Bilirubin 0.4 Direct Bilirubin AST 49 ALT 78 H Alkaline Phosphatase 84 Total Protein 7.9 Albumin 4.5 Globulin 3.5 Albumin/Globulin Ratio 1.3 Venous Blood Potassium Urine Color Straw Urine Clarity Clear Urine pH 6.0 Ur Specific [place] 1.004 Urine Protein Negative Urine Glucose (UA) 2+ H Urine Ketones Negative Urine Blood Negative Urine Nitrate Negative Urine Bilirubin Negative Urine Urobilinogen Normal Ur Leukocyte Esterase Neg Urine RBC (Auto) < 1 Salicylates Urine Opiates Screen Negative Urine Methadone Screen Negative Acetaminophen Ur Barbiturates Screen Negative Ur Phencyclidine Scrn Negative Ur Amphetamines Screen Negative U Benzodiazepines Scrn Negative U Oth Cocaine Metabols Negative U Cannabinoids Screen Negative Alcohol, Quantitative < 10 03/22/18 03/22/18 16:53 20:57 WBC RBC Hgb Hct MCV MCH MCHC RDW Plt Count MPV Neut % (Auto) Lymph % (Auto) [place] % (Auto) Eos % (Auto) Baso % (Auto) Neut # (Auto) Lymph # (Auto) [place] # (Auto) Eos # (Auto) Baso # (Auto) pO2 VBG pH VBG pCO2 VBG HCO3 VBG Total CO2 VBG O2 Sat (Calc) VBG Base Excess VBG Potassium Sodium Chloride Glucose Lactate FiO2 Potassium Carbon Dioxide Anion Gap BUN Creatinine Est GFR ( Amer) Est GFR (Non-Af Amer) POC Glucose (mg/dL) Random Glucose Calcium Total Bilirubin 0.4 Direct Bilirubin 0.2 AST 37 ALT 61 Alkaline Phosphatase 71 Total Protein 6.7 Albumin 3.6 Globulin 3.0 Albumin/Globulin Ratio 1.2 Venous Blood Potassium Urine Color Urine Clarity Urine pH Ur Specific [place] Urine Protein Urine Glucose (UA) Urine Ketones Urine Blood Urine Nitrate Urine Bilirubin Urine Urobilinogen Ur Leukocyte Esterase Urine RBC (Auto) Salicylates < 1.0 Urine Opiates Screen Urine Methadone Screen Acetaminophen < 10.0 L Ur Barbiturates Screen Ur Phencyclidine Scrn Ur Amphetamines Screen U Benzodiazepines Scrn U Oth Cocaine Metabols U Cannabinoids Screen Alcohol, Quantitative
[2018-03-23] MEDS: Dextrose 5%/0.45% NS 1,000 ML IV SCH ×3 (04:47→23:45)
[2018-03-23] MEDS: Multiple Vitamins Oral Solution PO SCH (09:25)
--- NOTE | 2018-03-23 11:28 | HP ---
CHIEF COMPLAINT: Altered mental status. HISTORY OF PRESENT ILLNESS: This is a 42-year-old [place] male, who did drug overdose with large amount of gabapentin. He took about 15 to 20 pills, 300 mg with an intention to commit suicide. The patient was drowsy, weak, palpitation, dizziness, elevated blood pressure, elevated heart rate, when he came to emergency room. The patient was recently discharged from [facility] on 03/20/2018, and the patient was in [facility] as well. He denies any history of street drugs or alcohol. The patient is right now drowsy. He has some shaking, and no further details are obtainable. PAST MEDICAL HISTORY: Noted significant. SOCIAL HISTORY: Unknown. CURRENT MEDICATIONS: Unknown. ALLERGIES: UNKNOWN. FAMILY HISTORY: Unknown. PHYSICAL EXAMINATION: GENERAL: A middle-aged male, in no acute distress. VITAL SIGNS: Blood pressure 158/91, pulse 124, respiratory rate 22, and temperature 98.6. SKIN: No rashes. No purpura. No petechia. HEENT: Atraumatic and normocephalic. Negative pallor. Negative jaundice. Extraocular movements are intact. NECK: Supple. No JVD. No lymph node. No thyromegaly. CHEST WALL: Bilateral symmetrical expansion. No thrill. No heave. LUNGS: Clear. No rales. No rhonchi. CARDIOVASCULAR SYSTEM: S1 and S2, regular. ABDOMEN: Soft and nontender. Bowel sounds are positive. RECTAL AND PELVIC: Deferred. 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 Withdraws from pain and moves all extremities with involuntary shaking. ASSESSMENT: 1. Gabapentin toxicity, supportive care. 2. Dehydration. 3. Depression. PLAN: Admit. Details order written. One-to-one watch. Obed Olivo MD
--- NOTE | 2018-03-23 14:00 | PCM.PSYCH ---
Addendum entered and electronically signed by Kathya Bowen MD 03/25/18 12:29: Pt seen and evaluated with the resident, agree with the findings. Original Note: Initial Psychiatric Evaluation - Initial Psychiatric Evaluation Type of Admission: Voluntary Legal Status: Capacity Chief Complaint (in patient's own words): "I want to ." History of Present Illness and Precipitating Events: Patient seen, chart reviewed, case discussed. He is known to psychiatry from many previous admissions. Mr. Carpenter is a 42 year old male, with one daughter. He's currently homeless and unemployed. He was recently discharged from [address] two days ago in addition to his history of multiple psychiatric hospitalizations. Per the patient he was recently locked up in retirement after leaving immigration ere they failed to deport him. He appears depression, irritable, and withdrawn, refusing to answer questions in expanded sentences. He states that he took the entirety of the bottle of prescriptions that we prescribed him in a suicide attempt. Did not go to rehab that was set up for him upon discharge. Denies current SI/HI, AVH. While under the influence, he actively hears voices telling him of his worthlessness and to kill himself. Smoking 3/4 ppd, marijuana daily, denies other illicit drugs. Drinks daily. PMH: HTN - water pill, DM - metformin, HLD Psych: bipolar, depression, SI, AH Legal: acquitted of murder of a family member ED: BAL <10, UDS negative, also neg in [place] Current Medications: Active Medications Generic Name Dose Route Start Last Admin Trade Name Freq PRN Reason Stop Dose Admin Dextrose/Sodium Chloride 1,000 mls @ 100 mls/hr 03/22/18 18:30 03/23/18 04:47 Dextrose 5%/0.45% Ns 1000 Ml IV 100 mls/hr .Q10H JON Administration Multivitamins/Vitamin C 5 ml 03/23/18 10:00 03/23/18 09:25 Multi-Delyn Liquid PO 5 ml DAILY JON Administration Past Psychiatric History - Past Psychiatric History Pertinent Medical Hx (Current Medical&Sleep Prob, Allergies): Allergies Allergy/AdvReac Type Severity Reaction Status Date / Time haloperidol [From Haldol] AdvReac SWELLING Verified 03/22/18 16:03 MetFORMIN [glucOPHAGE] 1,000 mg PO BID 03/07/18 traZODone [Desyrel] 50 mg PO HS #30 tab 03/09/18 Gabapentin [Neurontin] 300 mg PO BID #60 cap 03/20/18 Review of Systems - Psychiatric Psychiatric: Abnormal Sleep Pattern, Anhedonia, Auditory Hallucinations, Depression, Difficulty Concentrating, Hopelessness, Irritability, Paranoia, Suicidal Ideation. absent: Homicidal Ideation, Tactile Hallucinations Mental Status Examination - Personal Presentation Personal Presentation: Looks older than stated age - Affect Affect: Blunted - Motor Activity Motor Activity: Calm - Reliability in Providing Information Reliability in Providing Information: Fair - Speech Speech: Disorganized - Mood Mood: Depressed, Anxious - Formal Thought Process Formal Thought Process: Hallucinations, Paranoia - Hallucinations/Delusions Hallucinations: Auditory - Cognitive Functions Orientation: Person, Place, Situation Sensorium: Alert Attention/Concentration: Attentive Estimate of Intelligence: Below average Judgement: Imparied, as evidence by: Poor judgement, Imparied, as evidence by: Lack of insight into illness Memory: Recent impaired, as evidence by: Inability to recall events of the day, Remote intact, as evidenced by: Abilit to recall sig. life events - Risk Risk: Suicidal, Withdrawal, Diminished functioning DSM 5 DX - DSM 5 DSM 5 Diagnosis: Bipolar disorder, depressed moderate Cannabis use disorder moderate in remission - Recommended/Plan of Treatment Treatment Recommendations and Plan of Treatment: Patient is under 1:1 observation As needed medication Patient would like to return to the psychiatry unit, however states that it is because he likes living here at the hospital. Patient has refused the housing that [facility] has set up for him. He also continues to not adhere to aftercare instructions. Psychoeducation and support daily. Encourage compliance with meds and after care. Refer to outpatient program on discharge Smoking cessation and patch if needed Will follow while in hospital 34 min - Smoking Cessation Smoking Cessation Initiated: No
--- NOTE | 2018-03-23 21:57 | CP.PCM.PN ---
Subjective - Date & Time of Evaluation Date of Evaluation: 03/23/18 Time of Evaluation: 08:19 - Subjective Subjective: dictated Objective - Vital Signs/Intake and Output Vital Signs (last 24 hours): Temp Pulse Resp BP Pulse Ox 98.8 F 113 H 20 133/88 98 03/23/18 15:00 03/23/18 16:00 03/23/18 15:00 03/23/18 15:00 03/23/18 15:00 Intake and Output: 03/23/18 03/24/18 18:59 06:59 Intake Total 1600 Balance 1600 - Medications Medications: Current Medications Dextrose/Sodium Chloride (Dextrose 5%/0.45% Ns 1000 Ml) 1,000 mls @ 100 mls/hr IV .Q10H JON Last Admin: 03/23/18 14:31 Dose: 100 mls/hr Multivitamins/Vitamin C (Multi-Delyn Liquid) 5 ml PO DAILY JON Last Admin: 03/23/18 09:25 Dose: 5 ml - Labs Labs: 03/22/18 16:53 03/22/18 16:53
--- NOTE | 2018-03-23 23:12 | CARD ---
APPROVED REPORT Date of service: 03/22/2018 EKG Measurement Heart [id number] ID [id number] <Conclusion> Sinus tachycardia Otherwise normal ECG
--- NOTE | 2018-03-24 06:59 | PN ---
DATE: 03/23/2018 SUBJECTIVE: The patient is awake, alert. He is complaining of body pain. He admits having history of diabetes. He is noncompliant. He is still suicidal. He was waiting for psych consult when I saw him. PHYSICAL EXAMINATION: VITAL SIGNS: Blood pressure 133/88, pulse 103, respiratory rate 20, and temperature 98.8. LUNGS: Clear. ABDOMEN: Soft. ASSESSMENT: 1. Gabapentin overdose. 2. Hypertension. 3. Diabetes. PLAN: Psych evaluation. One-to-one watch. Monitor the patient. Obed Olivo MD
[2018-03-24 08:05] VITALS: O2SAT 99
[2018-03-24] MEDS: Multiple Vitamins Oral Solution PO SCH (09:06)
[2018-03-24] MEDS: Dextrose 5%/0.45% NS 1,000 ML IV SCH ×2 (09:08→12:27)
--- NOTE | 2018-03-24 12:57 | PCM.RRT ---
<Eliot Manning - Last Filed: 03/24/18 13:09> TELEPRINTER INSTALLER Nurses Assessment - Situation Date: 03/24/18 Time TELEPRINTER INSTALLER was called: 12:34 TELEPRINTER INSTALLER Location:: [address] [place] [address] Room Number: 529 TELEPRINTER INSTALLER Reason for Call: Hypertension TELEPRINTER INSTALLER Called By: RN - IV IV Inserted during TELEPRINTER INSTALLER?: No IV Fluids Initiated During TELEPRINTER INSTALLER?: NO - Respiratory TELEPRINTER INSTALLER Delivery Method: Room Air Received Nebulizer Treatments: No Was the Patient Ventilated with Bag/Mask 100% O2?: No Secretions Suctioned?: No Was the Patient Intubated?: No Was the Patient Placed on a Ventilator?: No - Medication Medications Administered During TELEPRINTER INSTALLER: Hydrochlorothiazide 12.5 mg x1, Amlodipine 5 mg x1 - Diagnostic Test Ordered EKG: No Chest X-Ray: No CT Scan: No - Stat Labs Ordered TELEPRINTER INSTALLER Stat Labs Ordered: CBC, BMP CPR started during TELEPRINTER INSTALLER?: No - Li Coma Scale Coma Scale Eye Opening: Spontaneous Coma Scale Motor: Obeys Commands Movement Coma Scale Verbal: Oriented Coma Scale Total: 15 - Time TELEPRINTER INSTALLER Ended Time TELEPRINTER INSTALLER Ended: 12:50 - Recommendations 5) TELEPRINTER INSTALLER Level of Care Recommendations: Remain in current setting Notifications: Attending Physician I.Reason for TELEPRINTER INSTALLER - A) Acute Change in Patient: (Select all that apply): Staff member or family is worried about patient Subjective: TELEPRINTER INSTALLER was called to evaluate patient for elevated blood pressure of 170/110. Repeat blood pressure at bedside was 162/113. Patient was asymptomatic upon arrival to rapid response, was complaining of R eye blurriness that he has had for a while. Denied headache, dizziness, chest pain, sob, n/v/d/c, abd pain, urinary complaints, or other symptoms. Per staff, patient was recently transferred from med/surg floor to psych floor for further management. - Neurological Status (Select all that apply): Alert, Responsive, Oriented, Verbal, Follows Commands - Respiratory Oxygen Delivery Method: Room Air - Constitutional Appears: Non-toxic, No Acute Distress - Head Head Exam: ATRAUMATIC, NORMOCEPHALIC - Eyes Eye Exam: EOMI, Normal appearance, PERRL - Respiratory Exam Respiratory Exam: Clear to Ausculation Bilateral, NORMAL BREATHING PATTERN. absent: Rales, Rhonchi, Wheezes - Cardiovascular Exam Cardiovascular Exam: REGULAR RHYTHM, +S1, +S2. absent: Gallop, Rubs, Murmur - GI/Abdominal Exam GI & Abdominal Exam: Soft, Normal Bowel Sounds. absent: Distended, Guarding, Rigid, Tenderness, Organomegaly, Rebound - Neurological Exam Neurological Exam: Alert, Awake, CN II-XII Intact, Normal Gait, Oriented x3, Reflexes Normal - Extremities Exam Extremities Exam: Full ROM, Normal Capillary Refill, Normal Inspection. absent: Calf Tenderness, Pedal Edema Plan - Assessment of Findings&Treatment Plan A: 42M hx HTN (was on bp meds in past as per pt) presents during TELEPRINTER INSTALLER called for elevated blood pressure. Pt asymptomatic, except for R sided blurry vision which patient states that he has had for a while. P: Gave patient Hydrochlorothiazide 12.5 mg x1 and Norvasc 5 mg x1. To be started on daily orders for HTN meds tomorrow. STAT CBC and CMP pending. Psych attending to be notified. Dr. Olivo, primary doctor to be notified. Plan discussed with Dr. Matta, attending hospitalist, who was also at bedside. <Jose Alfredo Matta H - Last Filed: 03/24/18 15:33> Attending/Attestation - Attestation I have personally seen and examined this patient.: Yes I have fully participated in the care of the patient.: Yes I have reviewed all pertinent clinical information, including history, physical exam and plan: Yes Notes (Text): 03/24/18 15:31 Medical Hospitalist: An TELEPRINTER INSTALLER was called because the patient had a blood pressure of 170s systolic and 110 diastolic. He was sitting in a chair when I came to 5E. He denied chest pain, denied shortness of breath. He has not taken any BP medications. For the time being he will be started on norvasc as well as HCTZ. thank you Jose Alfredo Matta
[2018-03-24 17:54] LABS: BASO # 0.1 K/uL (0.0-0.2); BASO % 0.6 % (0.0-2.0); EOS # 0.2 K/uL (0.0-0.7); EOS % 2.2 % (0.0-4.0); HEMOGLOBIN 12.3 g/dL (12.0-18.0); LYMPH # 2.8 K/uL (1.0-4.3); LYMPH % 30.2 % (20.0-40.0); MEAN CELL VOLUME 82.8 fL (80.0-94.0); MEAN CORPUSCULAR HEMOGLOBIN 27.2 pg (27.0-31.0); MEAN CORPUSCULAR HGB CONC 32.8 g/dL (33.0-37.0); MEAN PLATELET VOLUME 9.2 fL (7.2-11.7); MONO # 0.5 K/uL (0.0-0.8); MONO % 5.2 % (0.0-10.0); NEUT # 5.8 K/uL (1.8-7.0); NEUT % 61.8 % (50.0-75.0); NRBC % 0.2 % (0.0-2.0); RBC 4.52 Mil/uL (4.40-5.90); RED CELL DISTRIBUTION WIDTH 13.9 % (11.5-14.5); WHITE BLOOD COUNT 9.3 K/uL (4.8-10.8)
[2018-03-24 18:12] LABS: ALB/GLOB RATIO 1.4 (1.0-2.1); ALBUMIN 4.1 g/dL (3.5-5.0); ALT/SGPT 56 U/L (21-72); AST/SGOT 26 U/L (17-59); BLOOD UREA NITROGEN 9 mg/dL (9-20); CALCIUM 8.9 mg/dl (8.6-10.4); GFR NON-AFRICAN AMERICAN > 60
[2018-03-25] MEDS: Multiple Vitamins Tab PO SCH (09:15)
--- NOTE | 2018-03-25 12:30 | PCM.PYCHPN ---
Psychiatric Progress Note - Psychiatric Progress Note Patient seen today, length of contact: 15 min Patient Chief Complaint: I am hearing voices. Problems Identified/Issues Discussed: Patient seen and evaluated, chart reviewed and discussed with the nurse. Pt remained unpredictable, and still reports irritability and agitation. He reports depressed mood, and reports feelings of hopelessness and helplessness. He reports auditory hallucinations telling him to kill himself. He remained isolated and withdrawn, and confined to his room. Patient is compliant with medications and denies any side effects. Symptoms are improving but pt needs more time to stabilize. Support and psychoeducation given. Medication Change: Yes Medical Record Reviewed: Yes Mental Status Examination - Cognitive Function Orientation: Person, Place, Situation Memory: Intact Attention: WNL Concentration: Poor Association: WNL Fund of Knowledge: Poor - Mood Mood: Depressed, Anxious - Affect Affect: Blunted - Speech Speech: Soft - Formal Thought Process Formal Thought Process: Hallucinations, Paranoia - Suicidal Ideation Suicidal Ideation: No - Homicidal Ideation Homicidal Ideation: No Goal/Treatment Plan - Goal/Treatment Plan Need for Continued Stay: Severe depression anxiety, Severe functional impairment Progress Toward Problem(s) and Goals/Treatment Plan: Bipolar disorder, depressed moderate Cannabis use disorder moderate in remission D/C 1:1 observation As needed medication Patient would like to return to the psychiatry unit, however states that it is because he likes living here at the hospital. Patient has refused the housing that / has set up for him. He also continues to not adhere to aftercare instructions. Psychoeducation and support daily. Encourage compliance with meds and after care. Refer to outpatient program on discharge Smoking cessation and patch if needed Will follow while in hospital - Smoking Cessation Smoking Cessation Initiated: No
[2018-03-26] MEDS: Multiple Vitamins Tab PO SCH (09:25)
[2018-03-27] MEDS: Multiple Vitamins Tab PO SCH (10:03)
--- NOTE | 2018-03-27 15:16 | PCM.BM ---
Treatment Plan Problems - Problems identified on initial assessmt Depression Date Initiated: 03/31/18 Time Initiated: 13:00 Assessment reference: NA Status: Active Treatment assets and liabiliti Patient Assests: cooperative, insightful, motivated, ADL independent, physically healthy, negotiates basic needs, cognitively intact, strong breana Patient Liabilities: live alone, financial problems, poor support system, relationship conflicts, legal issue - Milieu Protocol Maintain good personal hygiene: daily Encourage regular showers, daily Remind patient to perform daily oral care, daily Assist patient to perform ADL's Maintain personal safety: every shift Educate patient to report safety concerns to staff, every shift Monitor environment for contraband/sharps Medication safety: Monitor for expected outcome, potential side effects: every shift, Assess barriers to learning: every shift, Assess readiness for medication education: every shift Milieu Narrative: Patient is under 1:1 observation As needed medication Patient would like to return to the psychiatry unit, however states that it is because he likes living here at the hospital. Patient has refused the housing that [facility] has set up for him. He also continues to not adhere to aftercare instructions. Psychoeducation and support daily. Encourage compliance with meds and after care. Refer to outpatient program on discharge Smoking cessation and patch if needed Will follow while in hospital 34 min Discharge/Continuing Care - Treatment Team Participation Patient/Family/SO Statement: Patient is under 1:1 observation As needed medication Patient would like to return to the psychiatry unit, however states that it is because he likes living here at the hospital. Patient has refused the housing that [facility] has set up for him. He also continues to not adhere to aftercare instructions. Psychoeducation and support daily. Encourage compliance with meds and after care. Refer to outpatient program on discharge Smoking cessation and patch if needed Will follow while in hospital 34 min
--- NOTE | 2018-03-27 21:59 | PCM.PYCHPN ---
Psychiatric Progress Note - Psychiatric Progress Note Patient seen today, length of contact: 15 min Patient Chief Complaint: I am hearing voices. Problems Identified/Issues Discussed: Patient seen and evaluated, chart reviewed and discussed with the nurse. Pt was transferred to the psychiatry from the medial floor. He remained isolated and withdrawn, and confined to his room. He reports depressed mood, and reports feelings of hopelessness and helplessness. He reports auditory hallucinations telling him to kill himself. Patient is compliant with medications and denies any side effects. Symptoms are improving but pt needs more time to stabilize. Support and psychoeducation given. Medication Change: Yes Medical Record Reviewed: Yes Mental Status Examination - Cognitive Function Orientation: Person, Place, Situation Memory: Intact Attention: WNL Concentration: Poor Association: WNL Fund of Knowledge: Poor - Mood Mood: Depressed, Anxious - Affect Affect: Blunted - Speech Speech: Soft - Formal Thought Process Formal Thought Process: Hallucinations, Paranoia - Suicidal Ideation Suicidal Ideation: No - Homicidal Ideation Homicidal Ideation: No Goal/Treatment Plan - Goal/Treatment Plan Need for Continued Stay: Severe depression anxiety, Severe functional impairment Progress Toward Problem(s) and Goals/Treatment Plan: Bipolar disorder, depressed moderate Cannabis use disorder moderate in remission D/C 1:1 observation As needed medication Patient would like to return to the psychiatry unit, however states that it is because he likes living here at the hospital. Patient has refused the housing that /[facility] has set up for him. He also continues to not adhere to aftercare instructions. Psychoeducation and support daily. Encourage compliance with meds and after care. Refer to outpatient program on discharge Smoking cessation and patch if needed Will follow while in hospital
--- NOTE | 2018-03-27 22:24 | PCM.PYCHPN ---
Psychiatric Progress Note - Psychiatric Progress Note Patient seen today, length of contact: 15 min Patient Chief Complaint: I am feeling better. Problems Identified/Issues Discussed: Patient seen, chart reviewed, case discussed with the staff. Issues related to illness and treatment were discussed with the patient and staff. Reported compliant with treatment with no adverse affects. Tolerating treatment very well. Patient reported feeling better with the treatment. Calm and cooperative. Awake, alert and oriented 3. No psychomotor activity, good eye contact, memory intact. Aftercare discussed with the patient. Denied any delusions, auditory or visual hallucinations, suicidal ideations or homicidal ideations at the time of evaluation. Medical Problems: Hypertension Diabetes mellitus Diagnostic Results: Reviewed DSM 5 Symptoms Update: Improving with treatment Medication Change: No Medical Record Reviewed: Yes Mental Status Examination - Cognitive Function Orientation: Person, Place, Situation, Time Memory: Intact Attention: WNL Concentration: WNL Association: WNL Fund of Knowledge: [facility] Decription of patient's judgement and insights: Fair - Mood Mood: Neutral - Affect Affect: Other (Appropriate) - Speech Speech: Appropriate - Formal Thought Process Formal Thought Process: No Impairment Psychotic Thoughts and Behaviors: None - Suicidal Ideation Suicidal Ideation: No - Homicidal Ideation Homicidal Ideation: No Goal/Treatment Plan - Goal/Treatment Plan Need for Continued Stay: Remain at risks for inpatient hospitalization, Discharge may exacerbated symptoms, Severe functional impairment Progress Toward Problem(s) and Goals/Treatment Plan: Patient/staff education. Supportive therapy. Continue treatment as before. Estimated Date of D/C: 03/28/18 - Smoking Cessation Smoking Cessation Initiated: No
[2018-03-28 06:12] VITALS: BP 123/86; PULSE 84; RESP 18; TEMP 98.7
[2018-03-28] MEDS: Multiple Vitamins Tab PO SCH (09:21)
--- NOTE | 2018-03-29 15:49 | PCM.PYCHDC ---
Mental Status Examination - Mental Status Examination Orientation: Person, Place, Situation, Time Memory: Intact Mood: Neutral Affect: Other (Appropriate) Speech: Appropriate Attention: WNL Concentration: WNL Association: WNL Fund of Knowledge: WNL Formal Thought Process: No Impairment Description of patient's judgement and insight: Fair Psychotic Thoughts and Behaviors: None Suicidal Ideation: No Current Homicidal Ideation?: No Discharge Summary - Discharge Note Reason for Hospitalization: Bipolar disorder depressed moderate Cannabis use disorder in remission Laboratory Data: Reviewed Consultations:: List each consultation separately and include: 1. Reason for request. 2. Findings. 3. Follow-up Summary of Hospital Course include:: 1. Description of specific treatment plan utilized for patients during their course of treatmen. 2. Summarize the time- course for resolution of acute symptoms and/or regressed behaviors. 3. Describe issues identified and worked on during hospitalization. 4. Describe medication utilized. 5. Describe medical problems identified and treated. 6. Reassessment of suicide risk Summary of Hospital Course: Patient seen, chart reviewed, case discussed. He is known to psychiatry from many previous admissions. Mr. Carpenter is a 42 year old male, with one daughter. He's currently homeless and unemployed. He was recently discharged from [address] two days ago in addition to his history of multiple psychiatric hospitalizations. Per the patient he was recently locked up in snf after leaving immigration where they failed to deport him. He appears depression, irritable, and withdrawn, refusing to answer questions in expanded sentences. He states that he took the entirety of the bottle of prescriptions that we prescribed him in a suicide attempt. Did not go to rehab that was set up for him upon discharge. Denies current SI/HI, AVH. While under the influence, he actively hears voices telling him of his worthlessness and to kill himself. Smoking 3/4 ppd, marijuana daily, denies other illicit drugs. Drinks daily. PMH: HTN - water pill, DM - metformin, HLD Psych: bipolar, depression, SI, AH Legal: acquitted of murder of a family member ED: BAL <10, UDS negative, also neg in [place] The hospital patient was treated for recurrent Seroquel, olanzapine, trazodone and other when necessary medications. Patient was attending groups and other activities on the unit. With the above treatment patient started feeling better. Today patient was stable and ready for discharge from the hospital. At the time of evaluation and discharge, patient was calm and cooperative, awake, alert and oriented 3, had no delusions, no auditory or visual hallucinations, no suicidal ideations or homicidal ideations. Patient was discharged in a stable condition. Patient will go to [facility]. He has appointment their on 03/29/2018. - Final Diagnosis (DSM 5) Condition upon Discharge: STABLE Disposition: HOME/ ROUTINE Follow-up Treatment Plan: Patient/staff education. Supportive therapy. Continue treatment as before. Prescriptions/Medication Reconciliation: QUEtiapine [SEROquel] 50 mg PO ONCE #30 tab traZODone [Desyrel] 50 mg PO HS PRN #30 tab PRN Reason: Insomnia - Smoking Cessation Smoking Cessation Medication prescribed: No - Antipsychotic Medications Pt discharged on 2 or more routine antipsychotic medications: No
== END 2018-03-28 10:50 | disposition home or self-care (01) | DRG 812 ==
LOC: C.ER 15:26 → C.9E 17:54 → C.5S 21:33 → C.5E 03-24 12:30
PROVIDERS: ADMIT Psychiatry & Neurology Psychiatry; ATTEND Psychiatry & Neurology Psychiatry
PROC: GZHZZZZ Group Psychotherapy (ICD-10-PCS; principal; 2018-03-22)
PROC: GZ56ZZZ Individual Psychotherapy, Supportive (ICD-10-PCS; 2018-03-22)
DX: T42.6X2A Poisoning by other antiepileptic and sedative-hypnotic drugs, intentional self-harm, initial encounter (principal); F31.32 Bipolar disorder, current episode depressed, moderate; I10 Essential (primary) hypertension; E86.0 Dehydration; E78.5 Hyperlipidemia, unspecified; F12.21 Cannabis dependence, in remission; F43.10 Post-traumatic stress disorder, unspecified; E11.9 Type 2 diabetes mellitus without complications; Z59.0 Homelessness; F17.210 Nicotine dependence, cigarettes, uncomplicated; Z91.19 Patient's noncompliance with other medical treatment and regimen; Z91.5 Personal history of self-harm; Y92.009 Unspecified place in unspecified non-institutional (private) residence as the place of occurrence of the external cause